=== PATIENT | female | born 1970 | race Two or more races ===

== ENCOUNTER → 2019-04-22 | Outpatient (REF) | payer OTHER ==
[2019-04-22 13:26] LABS: BASO # 0.1 10^3/uL (0.0-0.2); BASO % 0.7 % (0.0-1.0); EOS # 0.2 10^3/uL (0.0-0.50); EOS % 2.9 % (0.0-3.0); HEMOGLOBIN 12.8 g/dl (12.0-15.5); LYMPH # 2.2 10^3/uL (1.5-4.5); LYMPH % 32.2 % (24.0-44.0); MEAN CORPUSCULAR HEMOGLOBIN 31.7 pg (27.0-33.0); MEAN CORPUSCULAR HGB CONC 32.8 g/dl (32.0-36.5); MEAN CORPUSCULAR VOLUME 96.5 fl (80.0-96.0); MONO # 0.7 10^3/uL (0.0-0.8); MONO % 10.3 % (0.0-5.0); NEUTROPHILS # 3.7 10^3/uL (1.8-7.7); NEUTROPHILS % 53.6 % (36.0-66.0); PLATELET COUNT, AUTOMATED 313 10^3/uL (150-450); RED BLOOD COUNT 4.04 10^6/uL (4.00-5.40)
[2019-04-22 13:28] LABS: ALT/SGPT 21 U/L (12-78); BILIRUBIN,TOTAL 0.4 MG/DL (0.2-1.0); BLOOD UREA NITROGEN 13 MG/DL (7-18); CALCIUM LEVEL 9.8 MG/DL (8.5-10.1); CARBON DIOXIDE LEVEL 29 MEQ/L (21-32); CHLORIDE LEVEL 105 MEQ/L (98-107); COMPLEMENT C3 97 MG/DL (90-180); COMPLEMENT C4 23 MG/DL (10-40); CREATININE FOR GFR 0.64 MG/DL (0.55-1.30); GLOMERULAR FILTRATION RATE > 60.0 (>58); GLUCOSE, FASTING 82 MG/DL (70-100); POTASSIUM SERUM 4.8 MEQ/L (3.5-5.1); SODIUM LEVEL 140 MEQ/L (136-145); TOTAL PROTEIN 7.6 GM/DL (6.4-8.2)
[2019-04-22 14:22] LABS: CREATININE,RANDOM URINE 60.3 MG/DL
[2019-04-22 14:25] LABS: ERYTHROCYTE SEDIMENTATION RATE 17 mm/hr (0-20)
[2019-04-23 12:45] LABS: HEPATITIS B SURFACE ANTIGEN NEGATIVE (NEGATIVE)
[2019-04-28 18:27] LABS: ANA (HEP2) Positive (.); ANGIOTENSIN 1 CONVERTING ENZYM 46 U/L (14-82); ANTI DS-DNA AB <1:10 titer (.); RNP ANTIBODY 0.2 AI (0.0-0.9); SMITHS ANTIBODY < 0.2 AI (0.0-0.9); SSA SJOGRENS A >8.0 AI (0.0-0.9); SSB SJOGRENS B >8.0 AI (0.0-0.9); VITAMIN D 1,25 DIHYDROXY 60.5 pg/mL (19.9-79.3)
== END ==
LOC: M SFHCPLAZ 09:05
PROVIDERS: ATTEND Internal Medicine Rheumatology
DX: M35.01 Sjogren syndrome with keratoconjunctivitis (principal); M32.9 Systemic lupus erythematosus, unspecified

== ENCOUNTER → 2021-09-04 | Outpatient (CLI) | payer OTHER ==
--- NOTE | 2021-09-04 13:49 | REP ---
INDICATION: RT FOOT FX. COMPARISON: None. TECHNIQUE: AP, lateral, oblique views of the right foot FINDINGS: There is an oblique presumed subacute fracture of the 5th metatarsal bone. Remainder of the examination is essentially age-appropriate. IMPRESSION: Oblique fracture of the 5th metatarsal bone. <Electronically signed by Abhay Villegas > 09/04/21 [id number]
== END ==
LOC: M SOG 10:35
PROVIDERS: ATTEND Orthopaedic Surgery
DX: S92.351A Displaced fracture of fifth metatarsal bone, right foot, initial encounter for closed fracture (principal); W18.30XA Fall on same level, unspecified, initial encounter; Y92.009 Unspecified place in unspecified non-institutional (private) residence as the place of occurrence of the external cause

== ENCOUNTER → 2021-09-21 | Outpatient (CLI) | payer OTHER ==
--- NOTE | 2021-09-21 11:45 | REP ---
INDICATION: RT FOOT PAIN. COMPARISON: 09/04/2021 TECHNIQUE: Three views FINDINGS: The margins of the previously described distal diaphyseal fracture of the 5th metatarsal are less distinct indicating early callus formation from healing. The alignment is unchanged. There are no new fractures. IMPRESSION: As above. <Electronically signed by Antony Parada > 09/21/21 [id number]
== END ==
LOC: M SOG 10:34
PROVIDERS: ATTEND Orthopaedic Surgery
DX: M79.671 Pain in right foot (principal)

== ENCOUNTER → 2021-12-12 | Outpatient (REF) | payer OTHER ==
[2021-12-12 17:48] LABS: BASO # 0.1 10^3/uL (0.0-0.2); BASO % 0.7 % (0.0-1.0); EOS # 0.1 10^3/uL (0.0-0.5); EOS % 1.2 % (0.0-3.0); HEMATOCRIT 39.4 % (36.0-47.0); HEMOGLOBIN 12.7 g/dl (12.0-15.5); LYMPH # 2.6 10^3/uL (1.5-5.0); LYMPH % 32.1 % (24.0-44.0); MEAN CORPUSCULAR HEMOGLOBIN 29.9 pg (27.0-33.0); MEAN CORPUSCULAR HGB CONC 32.2 g/dl (32.0-36.5); MEAN CORPUSCULAR VOLUME 92.7 fl (80.0-96.0); MONO # 0.7 10^3/uL (0.0-0.8); MONO % 8.1 % (2.0-8.0); NEUTROPHILS # 4.7 10^3/uL (1.5-8.5); NEUTROPHILS % 57.5 % (36.0-66.0); PLATELET COUNT, AUTOMATED 355 10^3/uL (150-450); RED BLOOD COUNT 4.25 10^6/uL (4.00-5.40); WHITE BLOOD COUNT 8.2 10^3/uL (4.0-10.0)
[2021-12-12 17:49] LABS: CREATININE,RANDOM URINE 68.8 MG/DL; TOTAL PROTEIN,RANDOM URINE 7.3 MG/DL (0.0-12.0)
[2021-12-12 17:56] LABS: APPEARANCE, URINE CLEAR (CLEAR); BACTERIA, URINE AUTO NEGATIVE (NEGATIVE); BILIRUBIN, URINE AUTO NEGATIVE (NEGATIVE); BLOOD, URINE BLOOD NEGATIVE (NEGATIVE); COLOR, URINE STRAW (YELLOW); GLUCOSE, URINE (UA) AUTO NEGATIVE (NEGATIVE); KETONE, URINE AUTO NEGATIVE (NEGATIVE); LEUKOCYTE ESTERASE, URINE AUTO TRACE (NEGATIVE); MUCUS, URINE SMALL (NEGATIVE); NITRITE, URINE AUTO NEGATIVE (NEGATIVE); PROTEIN, URINE AUTO NEGATIVE (NEGATIVE); RBC, URINE AUTO 1 /HPF (0-3); SPECIFIC GRAVITY URINE AUTO 1.013 (1.002-1.035); SQUAMOUS EPITHELIAL CELL UR AU 1 /HPF (0-6); UROBILINOGEN, URINE AUTO 0.2 mg/dL (0.0-2.0); WBC, URINE AUTO 3 /HPF (0-3)
[2021-12-12 18:19] LABS: ALBUMIN 4.2 GM/DL (3.2-5.2); ALT/SGPT 26 U/L (12-78); BILIRUBIN,TOTAL 0.3 MG/DL (0.2-1.0); BLOOD UREA NITROGEN 16 MG/DL (7-18); CALCIUM LEVEL 9.4 MG/DL (8.5-10.1); CARBON DIOXIDE LEVEL 26 MEQ/L (21-32); CHLORIDE LEVEL 103 MEQ/L (98-107); COMPLEMENT C3 120 MG/DL (90-180); COMPLEMENT C4 24 MG/DL (10-40); CREATININE FOR GFR 0.56 MG/DL (0.55-1.30); GLOMERULAR FILTRATION RATE > 60.0 (>51); GLUCOSE, FASTING 86 MG/DL (70-100); POTASSIUM SERUM 4.3 MEQ/L (3.5-5.1); SODIUM LEVEL 136 MEQ/L (136-145)
[2021-12-12 18:25] LABS: ERYTHROCYTE SEDIMENTATION RATE 34 mm/hr (0-30)
== END ==
LOC: M SFHCRHEU 15:39
PROVIDERS: ATTEND Internal Medicine Rheumatology
DX: M35.01 Sjogren syndrome with keratoconjunctivitis (principal); M15.0 Primary generalized (osteo)arthritis; Z79.899 Other long term (current) drug therapy

== ENCOUNTER → 2022-01-08 | Outpatient (CLI) | payer OTHER ==
[~2022-01-08] MED LIST: BARIUM SULFATE 700 MG TABLET (E-Z-DISK) As Ordered ONE; E-Z-PAQUE 96% w/w SUSP 176GM BTL As Ordered ONE; VARIBAR NECTAR 40% w/v 240ML SUSP BTL As Ordered ONE; VARIBAR PUDDING 40% w/v 230ML TUBE As Ordered ONE
== END ==
LOC: M RAD 13:05
PROVIDERS: ATTEND Internal Medicine
DX: R13.10 Dysphagia, unspecified (principal)

== ENCOUNTER → 2022-01-09 | Outpatient (REF) | LOC: M PLAIMG 12:33 | PROVIDERS: ATTEND Internal Medicine | DX: Z00.00 Encounter for general adult medical examination without abnormal findings (principal) ==

== ENCOUNTER → 2023-03-14 | Outpatient (CLI) | payer OTHER ==
[~2023-03-14] MED LIST changes: -BARIUM SULFATE 700 MG TABLET (E-Z-DISK) As Ordered ONE; -E-Z-PAQUE 96% w/w SUSP 176GM BTL As Ordered ONE; +PROHANCE 279.3MG/ML 15ML VIAL ONE; -VARIBAR NECTAR 40% w/v 240ML SUSP BTL As Ordered ONE; -VARIBAR PUDDING 40% w/v 230ML TUBE As Ordered ONE
== END ==
LOC: M PLAIMG 13:56
PROVIDERS: ATTEND Otolaryngology
DX: H93.13 Tinnitus, bilateral (principal)
CPT/HCPCS: 70553; A9576

== ENCOUNTER → 2023-05-15 | Outpatient (CLI) | payer OTHER | LOC: M RAD 10:46 | PROVIDERS: ATTEND Internal Medicine Rheumatology | DX: M35.01 Sjogren syndrome with keratoconjunctivitis (principal); M15.0 Primary generalized (osteo)arthritis; Z90.81 Acquired absence of spleen; Z79.899 Other long term (current) drug therapy; R06.02 Shortness of breath; Z53.9 Procedure and treatment not carried out, unspecified reason ==

== ENCOUNTER → 2024-01-09 | Outpatient (REF) | payer OTHER ==
[2024-01-09 12:25] LABS: APPEARANCE, URINE CLEAR (CLEAR); BACTERIA, URINE AUTO NEGATIVE (NEGATIVE); BILIRUBIN, URINE AUTO NEGATIVE (NEGATIVE); BLOOD, URINE BLOOD NEGATIVE (NEGATIVE); COLOR, URINE YELLOW (YELLOW); GLUCOSE, URINE (UA) AUTO NEGATIVE (NEGATIVE); KETONE, URINE AUTO NEGATIVE (NEGATIVE); LEUKOCYTE ESTERASE, URINE AUTO NEGATIVE (NEGATIVE); MUCUS, URINE SMALL (NEGATIVE); NITRITE, URINE AUTO NEGATIVE (NEGATIVE); PROTEIN, URINE AUTO NEGATIVE (NEGATIVE); RBC, URINE AUTO 0 /HPF (0-3); SPECIFIC GRAVITY URINE AUTO 1.014 (1.002-1.035); SQUAMOUS EPITHELIAL CELL UR AU 0 /HPF (0-6); UROBILINOGEN, URINE AUTO 0.2 mg/dL (0.0-2.0); WBC, URINE AUTO 0 /HPF (0-3)
[2024-01-09 12:35] LABS: BASO % 0.7 % (0.0-1.0); EOS # 0.1 10^3/uL (0.0-0.5); EOS % 2.3 % (0.0-3.0); HEMATOCRIT 38.6 % (36.0-47.0); HEMOGLOBIN 12.7 g/dl (12.0-15.5); LYMPH # 2.3 10^3/uL (1.5-5.0); LYMPH % 37.9 % (24.0-44.0); MEAN CORPUSCULAR HGB CONC 32.9 g/dl (32.0-36.5); MEAN CORPUSCULAR VOLUME 94.1 fl (80.0-96.0); MONO # 0.7 10^3/uL (0.0-0.8); MONO % 11.8 % (2.0-8.0); NEUTROPHILS # 2.8 10^3/uL (1.5-8.5); PLATELET COUNT, AUTOMATED 343 10^3/uL (150-450)
[2024-01-09 12:44] LABS: CREATININE,RANDOM URINE 45.1 MG/DL
[2024-01-09 12:49] LABS: ERYTHROCYTE SEDIMENTATION RATE 50 mm/hr (0-30)
[2024-01-09 12:55] LABS: TOTAL PROTEIN,RANDOM URINE < 6.0 MG/DL (0.0-14.0)
[2024-01-09 12:57] LABS: C REACTIVE PROTEIN QUANTITATIV < 0.40 MG/DL (<1.0)
[2024-01-09 12:58] LABS: ALKALINE PHOSPHATASE 117 U/L (46-116); ALT/SGPT 28 U/L (7.0-40); AST/SGOT 23 U/L (<34); BILIRUBIN,TOTAL 0.2 MG/DL (0.3-1.2); BLOOD UREA NITROGEN 19 MG/DL (9-23); CALCIUM LEVEL 9.3 MG/DL (8.5-10.1); CARBON DIOXIDE LEVEL 28 MMOL/L (20-31); CHLORIDE LEVEL 103 MMOL/L (98-107); COMPLEMENT C3 138.9 MG/DL (90.0-170.0); COMPLEMENT C4 25.8 MG/DL (12-36); CREATININE FOR GFR 0.56 MG/DL (0.55-1.30); GLOMERULAR FILTRATION RATE > 60.0 (>51); GLUCOSE, FASTING 76 MG/DL (60-100); POTASSIUM SERUM 4.9 MMOL/L (3.5-5.1); SODIUM LEVEL 135 MMOL/L (136-145); TOTAL PROTEIN 7.6 G/DL (5.7-8.2)
[2024-01-12 15:07] LABS: ANTI DS-DNA AB Negative (Negative); COMPLEMENT TOTAL (CH50) > 60 U/mL (>41)
== END ==
LOC: M SFHCRHEU 09:52
PROVIDERS: ATTEND Internal Medicine Rheumatology
DX: M35.01 Sjogren syndrome with keratoconjunctivitis (principal); M15.0 Primary generalized (osteo)arthritis; Z90.81 Acquired absence of spleen; Z79.899 Other long term (current) drug therapy

== ENCOUNTER → 2024-07-02 | Outpatient (CLI) | payer MEDICARE, OTHER | LOC: M WHC 09:55 | PROVIDERS: ATTEND Internal Medicine | DX: Z12.31 Encounter for screening mammogram for malignant neoplasm of breast (principal) ==

== ENCOUNTER → 2024-10-06 | Outpatient (CLI) | payer MEDICARE, OTHER | LOC: M CARPUL 12:56 | PROVIDERS: ATTEND Internal Medicine Rheumatology | DX: M35.01 Sjogren syndrome with keratoconjunctivitis (principal) ==

== ENCOUNTER → 2024-10-19 | Outpatient (CLI) | payer MEDICARE, OTHER | LOC: M RAD 13:42 | PROVIDERS: ATTEND Internal Medicine Rheumatology | DX: M35.01 Sjogren syndrome with keratoconjunctivitis (principal); R06.02 Shortness of breath; Z53.9 Procedure and treatment not carried out, unspecified reason ==

== ENCOUNTER → 2025-07-27 | Outpatient (REF) | payer MEDICARE, OTHER ==
[2025-07-27 17:08] LABS: BASO # 0.1 10^3/uL (0.0-0.2); BASO % 0.9 % (0.0-1.0); EOS # 0.1 10^3/uL (0.0-0.5); EOS % 1.2 % (0.0-3.0); LYMPH # 2.2 10^3/uL (1.5-5.0); LYMPH % 37.9 % (24.0-44.0); MONO # 0.7 10^3/uL (0.0-0.8); MONO % 12.1 % (2.0-8.0); NEUTROPHILS # 2.8 10^3/uL (1.5-8.5); NEUTROPHILS % 47.6 % (36.0-66.0); PLATELET COUNT, AUTOMATED 336 10^3/uL (150-450)
[2025-07-27 17:19] LABS: APPEARANCE, URINE CLEAR (CLEAR); BACTERIA, URINE AUTO NEGATIVE (NEGATIVE); BILIRUBIN, URINE AUTO NEGATIVE (NEGATIVE); BLOOD, URINE BLOOD NEGATIVE (NEGATIVE); GLUCOSE, URINE (UA) AUTO NEGATIVE (NEGATIVE); KETONE, URINE AUTO NEGATIVE (NEGATIVE); LEUKOCYTE ESTERASE, URINE AUTO 2+ (NEGATIVE); NITRITE, URINE AUTO NEGATIVE (NEGATIVE); PROTEIN, URINE AUTO NEGATIVE (NEGATIVE); RBC, URINE AUTO 0 /HPF (0-3); SPECIFIC GRAVITY URINE AUTO 1.012 (1.002-1.035); SQUAMOUS EPITHELIAL CELL UR AU 2 /HPF (0-6); UROBILINOGEN, URINE AUTO 0.2 mg/dL (0.0-2.0); WBC, URINE AUTO 3 /HPF (0-3)
[2025-07-27 17:21] LABS: ERYTHROCYTE SEDIMENTATION RATE 42 mm/hr (0-30)
[2025-07-27 17:36] LABS: C REACTIVE PROTEIN QUANTITATIV < 0.50 MG/DL (<1.0); COMPLEMENT C4 27.1 MG/DL (12-36)
[2025-07-27 17:37] LABS: TOTAL PROTEIN,RANDOM URINE < 6.0 MG/DL (0.0-14.0)
[2025-07-27 17:38] LABS: ALT/SGPT 31 U/L (7.0-40); AST/SGOT 41 U/L (<34); CALCIUM LEVEL 9.8 MG/DL (8.5-10.1); CARBON DIOXIDE LEVEL 29 MMOL/L (20-31); CHLORIDE LEVEL 102 MMOL/L (98-107); CREATININE FOR GFR 0.67 MG/DL (0.55-1.30); GLOMERULAR FILTRATION RATE > 90.0 (>51); POTASSIUM SERUM 4.6 MMOL/L (3.5-5.1); SODIUM LEVEL 139 MMOL/L (136-145)
== END ==
LOC: M SFHCRHEU 11:35
PROVIDERS: ATTEND Internal Medicine Rheumatology
DX: M35.01 Sjogren syndrome with keratoconjunctivitis (principal); M15.0 Primary generalized (osteo)arthritis; Z90.81 Acquired absence of spleen; Z79.899 Other long term (current) drug therapy; R06.02 Shortness of breath; R20.2 Paresthesia of skin; I73.00 Raynaud's syndrome without gangrene; M79.643 Pain in unspecified hand